=== PATIENT | male | born 1980 | race Caucasian/White ===

== ENCOUNTER 2018-03-21 16:43 | Inpatient (IN) | payer OTHER ==
[2018-03-21 18:21] VITALS: BMI 25.2
--- NOTE | 2018-03-21 21:44 | HP ---
COWS - Scale Resting Pulse: 0= [place] 80 or Below Sweatin=Flushed/Facial Moisture Restless Observation: 3= Extraneous Movement Pupil Size: 1= Pupils >than Normal Bone or Joint Aches: 4=Acute Joint/Muscle Pain Runny Nose/ Eye Tearin= Runny Nose/Eyes GI Upset > 30mins: 1= Stomach Cramp Tremor Observation: 2= Slight Tremor Visible Yawning Observation: 0= None Anxiety or Irritability: 4=Extreme Anxiety Goose Flesh Skin: 0=Smooth Skin COWS Score: 19 Admission [facility] Chief Complaint: C/O WITHDRAWAL SX'S. SEEKING DETOX FROM HEROIN Allergies/Adverse Reactions: Allergies Allergy/AdvReac Type Severity Reaction Status Date / Time No Known Allergies Allergy Verified 03/21/18 21:36 History of Present Illness: 37 Y.O. MALE WITH HX/O OPIOID DEPENDENCE HERE FOR DETOX. THIS IS CLIENTS FIRST VISIT HERE. HE IS REFERRED BY HIS NEEDLE EXCHANGE PROGRAM.HE IS KNOWN TO OTHER INPATIENT TXMENT. REPORTS LAST ATTEMPT WAS 4 YEARS AGO BUT DOES NOT RECALL WHERE. HE REPORTS HE IS CURRENTLY USING 7 BAGS OF HEROIN. THERE IS METHADONE NOTED IN HIS URINE BUT DENIES USE. IT IS ALSO NOTED ON THE HEEL BUILDER CLIENT RECIEVES SUBOXONE. HE REPORTS HE DOES NOT TAKE THEM "BECAUSE IT DOES NOTHING FOR ME". HE IS UNBALE TO EXPLAIN WHY HE CONTINUES TO FILL THE RX. HE DOES STATE HE HOPES TO GET CLEAN ENOUGH TO BE ABLE TO RESTART HIS RX. HE DENIES DIVERSION. HE CURRENTLY HAS RECENT NEEDLE BENNETT TO BOTH ARMS FROM IVDU. REPORTS LONGEST CLEAN TIME 90 DAYS IN THE PAST 7 YEARS. DENIES HX/O DRUG OVERDOSE, . HE REPORTS HE ATTEMPTED SUICIDE IN 2003 BY SLASHING HIS WRIST. HE PRESENTLY DENIES ANY SI/ HI. DENIES PMHX BUT DOES REPORT SCHIZOAFFECTIVE,ON HALDOL, ZYPREXA AND BUSPAR. DENIES LEGALS Others' Prescriptions Patient Name: Zander Casiano Date: 1980 Address: [address] [place] [address] Sex: Male Rx Written Rx Dispensed Drug Quantity Days Supply Prescriber Name 03/18/2018 03/18/2018 suboxone 8 mg-2 mg sl film 42 14 Javon Vieira 12/07/2017 12/09/2017 suboxone 8 mg-2 mg sl film 30 10 Eliu Garcia Patient Name: Zander Casiano Date: 1980 Address: [address] [place] [id number] Sex: Male Rx Written Rx Dispensed Drug Quantity Days Supply Prescriber Name 02/09/2018 02/09/2018 suboxone 8 mg-2 mg sl film 90 30 Timur-Jeff, Ajmal 01/03/2018 01/04/2018 suboxone 8 mg-2 mg sl film 21 7 Timur[facility]Jeff, [facility] 11/13/2017 11/14/2017 suboxone 8 mg-2 mg sl film 28 10 Timur-Jeff, [facility] 11/06/2017 11/07/2017 suboxone 8 mg-2 mg sl film 21 7 Timur-Jeff, [facility] 10/28/2017 10/29/2017 suboxone 8 mg-2 mg sl film 21 7 Timur-Jeff, [facility] 10/20/2017 10/21/2017 suboxone 8 mg-2 mg sl film 21 7 Timur-Jeff, [facility] Patient Name: Zander Casiano Date: 1980 Address: [address] [place] [id number] Sex: Male Rx Written Rx Dispensed Drug Quantity Days Supply Prescriber Name 01/26/2018 01/26/2018 suboxone 8 mg-2 mg sl film 45 15 Timur-Jeff, [facility] 01/17/2018 01/17/2018 suboxone 8 mg-2 mg sl film 21 7 Timur-Jeff, [facility] 01/10/2018 01/10/2018 suboxone 8 mg-2 mg sl film 21 7 Timur-Jeff, [facility] 10/16/2017 10/16/2017 suboxone 8 mg-2 mg sl film 21 7 Timur-Jeff, [facility] 10/09/2017 10/09/2017 suboxone 8 mg-2 mg sl film 21 7 Timur-Jeff, [facility] 09/27/2017 10/01/2017 suboxone 8 mg-2 mg sl film 21 7 Timur-Jeff, [facility] 09/15/2017 09/15/2017 suboxone 8 mg-2 mg sl film 45 15 Timur-Jeff, [facility] 08/14/2017 08/19/2017 suboxone 8 mg-2 mg sl film 90 30 Timur-Jeff, [facility] 07/17/2017 07/20/2017 suboxone 8 mg-2 mg sl film 90 30 Timur-Jeff, [facility] 07/05/2017 07/06/2017 suboxone 8 mg-2 mg sl film 45 15 Timur-Jeff, [facility] 06/23/2017 06/24/2017 suboxone 8 mg-2 mg sl film 45 15 Timur-Jeff, [facility] 06/09/2017 06/10/2017 suboxone 8 mg-2 mg sl film 45 15 Timur-Jeff, [facility] 05/27/2017 05/27/2017 suboxone 8 mg-2 mg sl film 45 15 Timur-Jeff, [facility] 05/08/2017 05/14/2017 suboxone 8 mg-2 mg sl film 45 15 Timur-Jeff, [facility] 04/28/2017 04/29/2017 suboxone 8 mg-2 mg sl film 45 15 Timur-Jeff, [facility] 04/14/2017 04/16/2017 zubsolv 8.6-2.1 mg tablet sl 60 30 Timur-Jeff, [facility] 04/03/2017 04/03/2017 suboxone 8 mg-2 mg sl film 45 15 Timur-Jeff, [facility] Patient Name: Zander Casiano Date: 1980 Address: [address] [place] [address] Sex: Male Rx Written Rx Dispensed Drug Quantity Days Supply Prescriber Name 11/23/2017 11/23/2017 suboxone 8 mg-2 mg sl film 60 20 Eliu Garcia Patient Name: Zander Casiano Date: 1980 Address: [address] [place] [address] Sex: Male Rx Written Rx Dispensed Drug Quantity Days Supply Prescriber Name 04/02/2017 04/02/2017 tramadol hcl 50 mg tablet 90 30 Lisa Newell Exam Limitations: No Limitations - Ebola screening Have you traveled outside of the country in the last 21 days: No (N) Have you had contact with anyone from an Ebola affected area: No Have you been sick,other than usual withdrawal symptoms: No Do you have a fever: No - Review of Systems Constitutional: Chills, Malaise, Night Sweats, Unintentional Wgt. Loss EENT: reports: Nose Congestion (RUNNY NOSE) Respiratory: reports: No Symptoms reported Cardiac: reports: No Symptoms Reported GI: reports: Poor Fluid Intake, Abdominal cramping : reports: No Symptoms Reported Musculoskeletal: reports: Back Pain Integumentary: reports: Erythema (TO RECENT INECTIO SITESD) Neuro: reports: No Symptoms reported Endocrine: reports: No Symptoms Reported Hematology: reports: No Symptoms Reported Psychiatric: reports: Anxious, Depressed Other Systems: Reviewed and Negative Patient History - Patient Medical History Hx Anemia: No Hx Asthma: No Hx Chronic Obstructive Pulmonary Disease (COPD): No Hx Cancer: No Hx Cardiac Disorders: No Hx Congestive Heart Failure: No Hx Hypertension: No Hx Hypercholesterolemia: No Hx Pacemaker: No HX Cerebrovascular Accident: No Hx Seizures: No Hx Dementia: No Hx Diabetes: No Hx Gastrointestinal Disorders: No Hx Liver Disease: No Hx Genitourinary Disorders: No Hx Sexually Transmitted Disorders: No Hx Renal Disease (ESRD): No Hx Thyroid Disease: No Hx Human Immunodeficiency Virus (HIV): No Hx Hepatitis C: No Hx Depression: No Hx Suicide Attempt: Yes Hx Bipolar Disorder: No Hx Schizophrenia: No Other Medical History: SCHIZOAFFECTIVE - Patient Surgical History Past Surgical History: No - PPD History Previous Implant?: Yes Documented Results: Negative w/o proof Implanted On Prior [facility] Admission?: No PPD to be Administered?: Yes - Smoking Cessation Smoking history: Current every day smoker Have you smoked in the past 12 months: Yes Aproximately how many cigarettes per day: 15 Cigars Per Day: 0 Hx Chewing Tobacco Use: No Initiated information on smoking cessation: Yes 'Breaking Loose' booklet given: 03/21/18 - Substance & Tx. History Hx Alcohol Use: No Hx Substance Use: Yes Substance Use Type: Heroin Hx Substance Use Treatment: Yes (DOES NOT RECALL) - Substances Abused HEROIN Route: Injection Frequency: Daily Amount used: 7 BAGS Age of first use: 17 Date of Last Use: 03/20/18 Family Disease History - Family Disease History Family History: Denies Admission Physical Exam BHS - Vital Signs Vital Signs: Vital Signs - 24 hr 03/21/18 18:19 Temperature 97.3 F L Pulse Rate 67 Respiratory 18 Rate Blood Pressure 118/72 - Physical General Appearance: Yes: Appropriately Dressed, Mild Distress, Tremorous, Irritable, Sweating, Anxious HEENTM: Yes: EOMI, Normocephalic, Normal Voice, ARETHA, Pharynx Normal, Nasal Congestion Respiratory: Yes: Chest Non-Tender, Lungs Clear, Normal Breath Sounds, No Respiratory Distress, No Accessory Muscle Use Neck: Yes: No masses,lesions,Nodules, Supple, Trachea in good position Breast: Yes: Breast Exam Deferred Cardiology: Yes: Regular Rhythm, Regular Rate, S1, S2 Abdominal: Yes: Normal Bowel Sounds, Non Tender, Soft Genitourinary: Yes: Other (NO C/O) Back: Yes: Normal Inspection Musculoskeletal: Yes: full range of Motion, Gait Steady Extremities: Yes: Normal Capillary Refill, Normal Range of Motion, Non-Tender, Tremors Neurological: Yes: Fully Oriented, Alert, Depressed Affect Integumentary: Yes: Warm, Moist, Track Bennett (RECENT INJECTION BENNETT TO BOTH ARMS) Lymphatic: Yes: Within Normal Limits - Diagnostic (1) Opioid dependence with withdrawal Current Visit: Yes Status: Acute (2) Nicotine dependence Current Visit: Yes Status: Chronic Qualifiers: Nicotine product type: cigarettes Substance use status: uncomplicated Qualified Code(s): F17.210 - Nicotine dependence, cigarettes, uncomplicated (3) Schizoaffective disorder Current Visit: Yes Status: Chronic Qualifiers: Schizoaffective disorder type: unspecified Qualified Code(s): F25.9 - Schizoaffective disorder, unspecified (4) Depressed affect Current Visit: Yes Status: Acute (5) At risk for dehydration due to poor fluid intake Current Visit: Yes Status: Acute Cleared for Admission [facility] - Detox or Rehab [facility] Level of Care: Medically Managed Detox Regimen/Protocol: Methadone Claeared for Rehab Admission: No [facility] Breath Alcohol Content Breath Alcohol Content: 0 Urine Drug Screen - Results Drug Screen Negative: No Urine Drug Screen Results: OPI-Opiates, MTD-Methadone
[2018-03-21] MEDS ORDERED: METHADONE HCL 10 MG TABLET (FOR DETOX USE ONLY) PO ONE ×2 (21:54→23:00)
[2018-03-21] MEDS ORDERED: ACETAMINOPHEN 325 MG TABLET (FP) PO PRN (21:54)
[2018-03-21] MEDS ORDERED: MAGNESIUM HYDROX 2400MG/30ML ORAL SUSPENSION 30 ML CUP PO PRN (21:54)
[2018-03-21] MEDS ORDERED: MENTHOL/PHENOL 1 EACH UD MM PRN (21:54)
[2018-03-21] MEDS ORDERED: guaiFENesin/D-METHORPHAN HB 10 ML UNIT-DOSE CUPS PO PRN (21:54)
[2018-03-21] MEDS ORDERED: IBUPROFEN 400 MG TABLET (FP) PO PRN (21:54)
[2018-03-21] MEDS ORDERED: MAG HYDROX/AL HYDROX/SIMETH 30 ML UNIT-DOSE CUP PO PRN (21:54)
[2018-03-21] MEDS ORDERED: P-EPHED 60MG/TRIPROLIDI 2.5MG TABLET PO PRN (21:54)
[2018-03-21] MEDS ORDERED: MAGNESIUM CITRATE 300 ML BOTTLE PO PRN (21:54)
[2018-03-21] MEDS ORDERED: LOPERAMIDE HCL 2 MG CAPSULE PO PRN (21:54)
[2018-03-21] MEDS ORDERED: MELATONIN 5 MG TABLETS PO PRN (22:00)
[2018-03-21] MEDS: THIAMINE HCL 100 MG TABLET (FP) PO SCH (22:45)
[2018-03-22] MEDS ORDERED: METHADONE HCL 10 MG TABLET (FOR DETOX USE ONLY) PO ONE (10:00)
[2018-03-22] MEDS: PRENATAL VITAMINS W/ FOLIC ACID TABLET (FP) PO SCH (10:11)
[2018-03-22] MEDS: NICOTINE 21 MG/24 HOURS TOPICAL PATCH TD SCH (10:11)
[2018-03-22 10:28] LABS: HEMATOCRIT 42.1 % (35.4-49); HEMOGLOBIN 13.5 GM/dL (11.7-16.9); MCH 27.7 pg (25.7-33.7); MCHC 32.1 g/dl (32.0-35.9); MEAN CELL VOLUME 86.1 fl (80-96); MEAN PLT VOLUME 9.1 fl (7.5-11.1); PLATELET COUNT 231 K/MM3 (134-434); RBC 4.89 M/mm3 (4.00-5.60); RDW 14.7 % (11.9-15.9); WHITE BLOOD COUNT 6.1 K/mm3 (4.0-10.0)
[2018-03-22 10:48] LABS: ALBUMIN 3.1 g/dl (3.4-5.0); ALK PHOS 83 U/L (45-117); ANION GAP 8 MMOL/L (8-16); BILIRUBIN,TOTAL 0.5 mg/dL (0.2-1); BLOOD UREA NITROGEN 10 mg/dL (7-18); CALCIUM 9.1 mg/dL (8.5-10.1); CHLORIDE 108 mmol/L (98-107); CO2 26 mmol/L (21-32); CREATININE 0.7 mg/dL (0.55-1.3); GLUCOSE,RANDOM 76 mg/dL (74-106); POTASSIUM 4.5 mmol/L (3.5-5.1); SGOT/AST 40 U/L (15-37); SGPT/ALT 67 U/L (13-61); SODIUM 142 mmol/L (136-145); TOT PROT 6.4 g/dl (6.4-8.2)
--- NOTE | 2018-03-22 11:06 | EKG ---
Test Reason : Blood Pressure : / mmHG Vent. Rate : 053 BPM Atrial Rate : 053 BPM P-R Int : 130 ms QRS Dur : 080 ms QT Int : 406 ms P-R-T Axes : 038 074 051 degrees QTc Int : 380 ms SINUS BRADYCARDIA OTHERWISE NORMAL ECG NO PREVIOUS ECGS AVAILABLE Confirmed by Ricky Puckett MD ([id number]) on 03/22/2018 11:06:20 AM Referred By: Confirmed By:Ricky Puckett MD
--- NOTE | 2018-03-22 11:24 | PN ---
BHS COWS - Scale Resting Pulse: 0= [place] 80 or Below Sweatin=Flushed/Facial Moisture Restless Observation: 1= Difficult to Sit Still Pupil Size: 0= Normal to Room Light Bone or Joint Aches: 2= Severe Diffuse Aches Runny Nose/ Eye Tearin= Nasal Congestion GI Upset > 30mins: 1= Stomach Cramp Tremor Observation of Outstretched Hands: 2= Slight Tremor Visible Yawning Observation: 2= >3x During Session Anxiety or Irritability: 2=Irritable/Anxious Goose Flesh Skin: 0=Smooth Skin COWS Score: 13 BHS Progress Note (SOAP) Subjective: irritable agitation sweats interrupted sleep chills/goosebumps Objective: 03/22/18 11:23 Vital Signs Temperature 97.6 F 03/22/18 09:17 Pulse Rate 73 03/22/18 09:17 Respiratory Rate 18 03/22/18 09:17 Blood Pressure 133/76 03/22/18 09:17 O2 Sat by Pulse Oximetry (%) Laboratory Tests 03/22/18 03/22/18 03/22/18 07:30 07:30 07:30 WBC 6.1 RBC 4.89 Hgb 13.5 Hct 42.1 MCV 86.1 MCH 27.7 MCHC 32.1 RDW 14.7 Plt Count 231 MPV 9.1 Sodium 142 Potassium 4.5 Chloride 108 H Carbon Dioxide 26 Anion Gap 8 BUN 10 Creatinine 0.7 Creat Clearance w eGFR > 60 Random Glucose 76 Calcium 9.1 Total Bilirubin 0.5 AST 40 H ALT 67 H Alkaline Phosphatase 83 Total Protein 6.4 Albumin 3.1 L RPR Titer Nonreactive HIV 1&2 Antibody Screen HIV P24 Antigen 03/22/18 07:30 WBC RBC Hgb Hct MCV MCH MCHC RDW Plt Count MPV Sodium Potassium Chloride Carbon Dioxide Anion Gap BUN Creatinine Creat Clearance w eGFR Random Glucose Calcium Total Bilirubin AST ALT Alkaline Phosphatase Total Protein Albumin RPR Titer HIV 1&2 Antibody Screen Negative HIV P24 Antigen Negative labs pending aaox3 ambulating no acute distress Assessment: 03/22/18 11:24 withdrawal sx Plan: continue detox increase fluids
--- NOTE | 2018-03-22 12:32 | CONSULT ---
[facility] Psychiatric Consult - Data Date of interview: 03/22/18 Admission source: [facility] Identifying data: Patient is a 37 year old single male, without children, unemployed (denies receiving financial assistance) and is currently homeless. This is patient's first admission to detox at [facility]. Patient admitted to for opiate dependence. Substance Abuse History: - Smoking Cessation. Smoking history: Current every day smoker. Have you smoked in the past 12 months: Yes. Aproximately how many cigarettes per day: 15. Cigars Per Day: 0. Hx Chewing Tobacco Use: No. Initiated information on smoking cessation: Yes. 'Breaking Loose' booklet given : 03/21/18. - Substance & Tx. History. Hx Alcohol Use: No. Hx Substance Use: Yes. Substance Use Type: Heroin. Hx Substance Use Treatment: Yes (DOES NOT RECALL). - Substances Abused. HEROIN. Route: Injection. Frequency: Daily. Amount used: 7 BAGS. Age of first use: 17. Date of Last Use: 03/20/18 Medical History: denies. Psychiatric History: Patient's first psychiatric contact was 18 years ago. He was admitted to [facility] psychatric unit, diagnosed with schizoaffective , and started on Zyprexa. After discharge he continued to receive psychiatric treatment at [facility] outpatient clinc. Patient currently receives outpatient psychiatric care by Dr. Abdon Marte at [facility]. He is prescribed zyprexa 5mg + Buspar 15mg TID + Haldol 2mg prn (reports taking haldol 3-4 times per week). Pharmacy claims reviewed. Pt reports compliance with medication. Patient denies h/o suicide attempt. No psychosis, manic or depressive symptoms noted. He currently reports poor sleep. Patient denies h/o suicide attempt. Physical/Sexual Abuse/Trauma History: denies. Mental Status Exam - Mental Status Exam Alert and Oriented to: Time, Place, Person Cognitive Function: Good Mood: Euthymic Affect: Mood Congruent Patient Behavior: Fatigued, Cooperative Speech Pattern: Appropriate Voice Loudness: Normal Thought Process: Intact, Goal Oriented Thought Disorder: Not Present Hallucinations: Denies Suicidal Ideation: Denies Homicidal Ideation: Denies Insight/Judgement: Poor Sleep: Poorly Appetite: Fair Muscle strength/Tone: Normal Gait/Station: Normal Psychiatric Findings - Problem List ([place] 1, 2,3) (1) Opioid dependence with withdrawal Current Visit: Yes Status: Acute (2) Nicotine dependence Current Visit: Yes Status: Chronic Qualifiers: Nicotine product type: cigarettes Substance use status: uncomplicated Qualified Code(s): F17.210 - Nicotine dependence, cigarettes, uncomplicated (3) Schizoaffective disorder Current Visit: Yes Status: Chronic Qualifiers: Schizoaffective disorder type: unspecified Qualified Code(s): F25.9 - Schizoaffective disorder, unspecified - Initial Treatment Plan Initial Treatment Plan: Psychoeducation provided. Detoxification in progress. Will order zyprexa 5mg + Buspar 15mg BID (he dose not want to be awaken at 6am so will order BID)+ Haldol 2mg q6hr for agitation/irritiabiity. Benefits and side effects discussed. Verbal consent given.
[2018-03-22] MEDS ORDERED: HALOPERIDOL 2 MG TABLET PO PRN (12:47)
[2018-03-22] MEDS ORDERED: HALOPERIDOL 1 MG TABLET (FP) PO PRN ×2 (12:58→18:05)
[2018-03-22 18:49] LABS: URINE APPEARANCE CLEAR; URINE BILIRUBIN NEGATIVE (<2.0 mg/dL); URINE COLOR YELLOW; URINE GLUCOSE (UA) NEGATIVE (NEGATIVE); URINE KETONE NEGATIVE (NEGATIVE); URINE LEUK ESTERASE NEGATIVE (NEGATIVE); URINE NITRITE NEGATIVE (NEGATIVE); URINE PROTEIN NEGATIVE (NEGATIVE); URINE UROBILINOGEN NEGATIVE mg/dL (0.2-1.0)
[2018-03-22] MEDS: OLANZapine 5 MG TABLET PO SCH (22:02)
[2018-03-22] MEDS: THIAMINE HCL 100 MG TABLET (FP) PO SCH (22:03)
[2018-03-23] MEDS ORDERED: METHADONE HCL 5 MG TABLET (FOR DETOX USE ONLY) PO ONE (10:00)
[2018-03-23] MEDS: NICOTINE 21 MG/24 HOURS TOPICAL PATCH TD SCH (10:08)
[2018-03-23] MEDS: PRENATAL VITAMINS W/ FOLIC ACID TABLET (FP) PO SCH (10:09)
--- NOTE | 2018-03-23 10:30 | PN ---
BHS COWS - Scale Resting Pulse: 0= [place] 80 or Below Sweatin= Chills/Flushing Restless Observation: 1= Difficult to Sit Still Pupil Size: 1= Pupils >than Normal Bone or Joint Aches: 1= Mild Discomfort Runny Nose/ Eye Tearin= Runny Nose/Eyes GI Upset > 30mins: 1= Stomach Cramp Tremor Observation of Outstretched Hands: 1= Tremor [place], Not Seen Yawning Observation: 1= 1-2x During Session Anxiety or Irritability: 1=Feels Anxious/Irritable Goose Flesh Skin: 0=Smooth Skin COWS Score: 10 BHS Progress Note (SOAP) Subjective: sweat tremor gi distress restlessness patient reported that he is on suboxone 8-2 mg tid x 2 years last filled x 30 days patient has positive utox for opiate and methadone discussed risks and benefits of suboxone vs. methadone patient wants to continue maintaining in suboxen program Objective: 03/23/18 10:33 Vital Signs Temperature 98.4 F 03/23/18 09:04 Pulse Rate 69 03/23/18 09:04 Respiratory Rate 16 03/23/18 09:04 Blood Pressure 115/59 L 03/23/18 09:04 O2 Sat by Pulse Oximetry (%) Laboratory Last Values WBC 6.1 K/mm3 (4.0-10.0) 03/22/18 07:30 RBC 4.89 M/mm3 (4.00-5.60) 03/22/18 07:30 Hgb 13.5 GM/dL (11.7-16.9) 03/22/18 07:30 Hct 42.1 % (35.4-49) 03/22/18 07:30 MCV 86.1 fl (80-96) 03/22/18 07:30 MCH 27.7 pg (25.7-33.7) 03/22/18 07:30 MCHC 32.1 g/dl (32.0-35.9) 03/22/18 07:30 RDW 14.7 % (11.9-15.9) 03/22/18 07:30 Plt Count 231 K/MM3 (134-434) 03/22/18 07:30 MPV 9.1 fl (7.5-11.1) 03/22/18 07:30 Sodium 142 mmol/L (136-145) 03/22/18 07:30 Potassium 4.5 mmol/L (3.5-5.1) 03/22/18 07:30 Chloride 108 mmol/L (98-107) H 03/22/18 07:30 Carbon Dioxide 26 mmol/L (21-32) 03/22/18 07:30 Anion Gap 8 MMOL/L (8-16) 03/22/18 07:30 BUN 10 mg/dL (7-18) 03/22/18 07:30 Creatinine 0.7 mg/dL (0.55-1.3) 03/22/18 07:30 Creat Clearance w eGFR > 60 (>60) 03/22/18 07:30 Random Glucose 76 mg/dL (74-106) 03/22/18 07:30 Calcium 9.1 mg/dL (8.5-10.1) 03/22/18 07:30 Total Bilirubin 0.5 mg/dL (0.2-1) 03/22/18 07:30 AST 40 U/L (15-37) H 03/22/18 07:30 ALT 67 U/L (13-61) H 03/22/18 07:30 Alkaline Phosphatase 83 U/L (45-117) 03/22/18 07:30 Total Protein 6.4 g/dl (6.4-8.2) 03/22/18 07:30 Albumin 3.1 g/dl (3.4-5.0) L 03/22/18 07:30 Urine Color Yellow 03/22/18 16:30 Urine Appearance Clear 03/22/18 16:30 Urine pH 6.0 (5.0-8.0) 03/22/18 16:30 Ur Specific [place] 1.021 (1.001-1.035) 03/22/18 16:30 Urine Protein Negative (NEGATIVE) 03/22/18 16:30 Urine Glucose (UA) Negative (NEGATIVE) 03/22/18 16:30 Urine Ketones Negative (NEGATIVE) 03/22/18 16:30 Urine Blood Negative (NEGATIVE) 03/22/18 16:30 Urine Nitrite Negative (NEGATIVE) 03/22/18 16:30 Urine Bilirubin Negative (<2.0 mg/dL) 03/22/18 16:30 Urine Urobilinogen Negative mg/dL (0.2-1.0) 03/22/18 16:30 Ur Leukocyte Esterase Negative (NEGATIVE) 03/22/18 16:30 RPR Titer Nonreactive (NONREACTIVE) 03/22/18 07:30 HIV 1&2 Antibody Screen Negative 03/22/18 07:30 HIV P24 Antigen Negative 03/22/18 07:30 lab noted Assessment: 03/23/18 10:34 withdrawal sx Plan: continue detox
[2018-03-23] MEDS: NICOTINE POLACRILEX 2 MG GUM BC PRN ×2 (17:00→19:13)
[2018-03-23] MEDS: OLANZapine 5 MG TABLET PO SCH (21:03)
[2018-03-23] MEDS: THIAMINE HCL 100 MG TABLET (FP) PO SCH (21:07)
[2018-03-24] MEDS ORDERED: METHADONE HCL 5 MG TABLET (FOR DETOX USE ONLY) PO ONE (10:00)
[2018-03-24] MEDS: PRENATAL VITAMINS W/ FOLIC ACID TABLET (FP) PO SCH (10:44)
[2018-03-24] MEDS: diazePAM 5 MG TABLET PO PRN ×3 (10:44→22:31)
[2018-03-24] MEDS: NICOTINE 21 MG/24 HOURS TOPICAL PATCH TD SCH (10:47)
[2018-03-24] MEDS: NICOTINE POLACRILEX 2 MG GUM BC PRN (10:48)
--- NOTE | 2018-03-24 12:24 | PN ---
BHS Progress Note (SOAP) Subjective: body aches joints pain sweat tremor Objective: 03/24/18 12:23 Vital Signs Temperature 97.9 F 03/24/18 09:18 Pulse Rate 60 03/24/18 09:18 Respiratory Rate 18 03/24/18 09:18 Blood Pressure 124/82 03/24/18 09:18 O2 Sat by Pulse Oximetry (%) Laboratory Last Values WBC 6.1 K/mm3 (4.0-10.0) 03/22/18 07:30 RBC 4.89 M/mm3 (4.00-5.60) 03/22/18 07:30 Hgb 13.5 GM/dL (11.7-16.9) 03/22/18 07:30 Hct 42.1 % (35.4-49) 03/22/18 07:30 MCV 86.1 fl (80-96) 03/22/18 07:30 MCH 27.7 pg (25.7-33.7) 03/22/18 07:30 MCHC 32.1 g/dl (32.0-35.9) 03/22/18 07:30 RDW 14.7 % (11.9-15.9) 03/22/18 07:30 Plt Count 231 K/MM3 (134-434) 03/22/18 07:30 MPV 9.1 fl (7.5-11.1) 03/22/18 07:30 Sodium 142 mmol/L (136-145) 03/22/18 07:30 Potassium 4.5 mmol/L (3.5-5.1) 03/22/18 07:30 Chloride 108 mmol/L (98-107) H 03/22/18 07:30 Carbon Dioxide 26 mmol/L (21-32) 03/22/18 07:30 Anion Gap 8 MMOL/L (8-16) 03/22/18 07:30 BUN 10 mg/dL (7-18) 03/22/18 07:30 Creatinine 0.7 mg/dL (0.55-1.3) 03/22/18 07:30 Creat Clearance w eGFR > 60 (>60) 03/22/18 07:30 Random Glucose 76 mg/dL (74-106) 03/22/18 07:30 Calcium 9.1 mg/dL (8.5-10.1) 03/22/18 07:30 Total Bilirubin 0.5 mg/dL (0.2-1) 03/22/18 07:30 AST 40 U/L (15-37) H 03/22/18 07:30 ALT 67 U/L (13-61) H 03/22/18 07:30 Alkaline Phosphatase 83 U/L (45-117) 03/22/18 07:30 Total Protein 6.4 g/dl (6.4-8.2) 03/22/18 07:30 Albumin 3.1 g/dl (3.4-5.0) L 03/22/18 07:30 Urine Color Yellow 03/22/18 16:30 Urine Appearance Clear 03/22/18 16:30 Urine pH 6.0 (5.0-8.0) 03/22/18 16:30 Ur Specific [place] 1.021 (1.001-1.035) 03/22/18 16:30 Urine Protein Negative (NEGATIVE) 03/22/18 16:30 Urine Glucose (UA) Negative (NEGATIVE) 03/22/18 16:30 Urine Ketones Negative (NEGATIVE) 03/22/18 16:30 Urine Blood Negative (NEGATIVE) 03/22/18 16:30 Urine Nitrite Negative (NEGATIVE) 03/22/18 16:30 Urine Bilirubin Negative (<2.0 mg/dL) 03/22/18 16:30 Urine Urobilinogen Negative mg/dL (0.2-1.0) 03/22/18 16:30 Ur Leukocyte Esterase Negative (NEGATIVE) 03/22/18 16:30 RPR Titer Nonreactive (NONREACTIVE) 03/22/18 07:30 HIV 1&2 Antibody Screen Negative 03/22/18 07:30 HIV P24 Antigen Negative 03/22/18 07:30 lab noted Assessment: 03/24/18 12:24 withdrawal sx Plan: continue detox
[2018-03-24] MEDS: THIAMINE HCL 100 MG TABLET (FP) PO SCH (22:32)
[2018-03-24] MEDS: OLANZapine 5 MG TABLET PO SCH (22:32)
[2018-03-25 07:25] VITALS: TEMP 97.7
[2018-03-25 09:42] VITALS: BP 118/67; PULSE 79
[2018-03-25] MEDS ORDERED: METHADONE HCL 10 MG TABLET (FOR DETOX USE ONLY) PO ONE (10:00)
[2018-03-25] MEDS: NICOTINE 21 MG/24 HOURS TOPICAL PATCH TD SCH (10:04)
[2018-03-25] MEDS: PRENATAL VITAMINS W/ FOLIC ACID TABLET (FP) PO SCH (10:04)
--- NOTE | 2018-03-25 12:01 | DS ---
[facility] Detox Discharge Summary Admission Date: 03/21/18 Discharge Date: 03/25/18 - History Present History: Opioid Dependence - Physical Exam Results Vital Signs: Vital Signs Temperature 97.7 F 03/25/18 09:42 Pulse Rate 79 03/25/18 09:42 Respiratory Rate 18 03/25/18 09:42 Blood Pressure 118/67 03/25/18 09:42 O2 Sat by Pulse Oximetry (%) Pertinent Admission Physical Exam Findings: PATIENT TOLERATED DETOX WELL. ACCEPTED REHAB REFERRAL TO [facility] AND BED AVAILABLE TODAY. PATIENT WAS SCHEDULED D/C TOMORROW. SINCE PATIENT MEDICALLY STABLE, AGREE TO D/C TODAY. PATIENT DENIES SI/HI. ENCOURAGED TO COMPLETE REHAB TO PREVENT RELAPSE. - Treatment Hospital Course: Detox Protocol Followed, Detoxed Safely, Responded well, Discharged Condition Good, Rehab Referral Accepted Patient has Accepted a Rehab Referral to: [facility] - Medication Discharge Medications: Ambulatory Orders Buspirone HCl [Buspar -] 15 mg PO TID 03/21/18 Haloperidol [Haldol -] 2 mg PO PRN PRN 03/21/18 Olanzapine [Zyprexa -] 5 mg PO HS 03/21/18 Haloperidol [Haldol -] 2 mg PO Q6H PRN 03/22/18 - AMA Did Patient Leave Against Medical Advice: No
[2018-03-26] MEDS ORDERED: METHADONE HCL 5 MG TABLET (FOR DETOX USE ONLY) PO ONE (06:00)
== END 2018-03-25 12:28 | disposition home or self-care (01) | DRG 773 ==
LOC: YASAS 16:43 → Y6N 22:08
PROC: HZ2ZZZZ Detoxification Services for Substance Abuse Treatment (ICD-10-PCS; principal; 2018-03-21)
DX: F11.23 Opioid dependence with withdrawal (principal); F17.210 Nicotine dependence, cigarettes, uncomplicated; F25.9 Schizoaffective disorder, unspecified; F32.9 Major depressive disorder, single episode, unspecified; R63.8 Other symptoms and signs concerning food and fluid intake
CPT/HCPCS: 36415; 80053; 81003; 85027; 86593; 87389; 93005; 93010

== ENCOUNTER 2022-04-23 10:13 | Inpatient (IN) | payer OTHER ==
[2022-04-23 11:15] VITALS: BMI 30.4
[2022-04-23] MEDS ORDERED: IBUPROFEN 600 MG TABLET (FP) PO PRN (11:54)
[2022-04-23] MEDS ORDERED: MAGNESIUM HYDROX 2400MG/30ML ORAL SUSPENSION 30 ML CUP PO PRN (11:54)
[2022-04-23] MEDS ORDERED: IBUPROFEN 400 MG TABLET (FP) PO PRN (11:54)
[2022-04-23] MEDS ORDERED: BISMUTH SUBSALICYLATE 524 MG/30 ML PO PRN (11:54)
[2022-04-23] MEDS ORDERED: diazePAM 5 MG TABLET PO PRN (11:54)
[2022-04-23] MEDS ORDERED: LOPERAMIDE HCL 2 MG CAPSULE PO PRN (11:54)
[2022-04-23] MEDS ORDERED: ACETAMINOPHEN 325 MG TABLET (FP) PO PRN ×2 (11:54)
[2022-04-23] MEDS ORDERED: ONDANSETRON *ODT* 4 MG TABLET SL PRN (11:54)
[2022-04-23] MEDS ORDERED: DICYCLOMINE HCL 10 MG CAPSULE PO PRN (11:54)
[2022-04-23] MEDS ORDERED: MAGNESIUM CITRATE 300 ML BOTTLE PO PRN (11:54)
[2022-04-23] MEDS ORDERED: BUPRENORPHINE HCL 150 MCG, BUPRENORPHINE HCL 75 MCG BC PRN (11:54)
[2022-04-23] MEDS ORDERED: BENZOCAINE/MENTHOL (CHLORASEPTIC ) LOZENGE MM PRN (11:54)
[2022-04-23] MEDS ORDERED: METHOCARBAMOL 500 MG TABLET PO PRN (11:54)
[2022-04-23] MEDS ORDERED: NICOTINE 10 MG CARTRIDGE (INHALER) IH PRN (11:54)
[2022-04-23] MEDS ORDERED: hydrOXYzine PAMOATE 25 MG CAPSULE (FP) PO PRN (11:54)
[2022-04-23] MEDS ORDERED: MAG HYDROX/AL HYDROX/SIMETH 30 ML UNIT-DOSE CUP PO PRN (11:54)
[2022-04-23] MEDS ORDERED: NALOXONE HCL (KLOXXADO) 8 MG SPRAY NS PRN (11:54)
[2022-04-23] MEDS ORDERED: BUPRENORPHINE HCL 150 MCG FILM BC ONE (12:09)
[2022-04-23] MEDS ORDERED: BUPRENORPHINE HCL 75 MCG FILM BC ONE (12:10)
[2022-04-23] MEDS ORDERED: IBUPROFEN 600 MG TABLET (FP) PO ONE (12:14)
[2022-04-23] MEDS ORDERED: cloNIDine HCL 0.1 MG TABLET PO ONE (12:15)
[2022-04-23] MEDS ORDERED: BUPRENORPHINE HCL 150 MCG, BUPRENORPHINE HCL 75 MCG BC ONE (12:15)
[2022-04-23] MEDS ORDERED: PRENATAL VITAMINS W/ FOLIC ACID TABLET (FP) PO SCH (12:30)
[2022-04-23 12:54] VITALS: BP 123/65; PULSE 77; RESP 18; TEMP 97.3
[2022-04-23 15:34] LABS: HEMATOCRIT 41.1 % (35.4-49); HEMOGLOBIN 13.9 GM/dL (11.7-16.9); MCH 29.1 pg (25.7-33.7); MEAN CELL VOLUME 85.8 fl (80-96); MEAN PLT VOLUME 9.4 fl (7.5-11.1); PLATELET COUNT 179 10^3/uL (134-434); RBC 4.78 M/mm3 (4.00-5.60); RDW 13.5 % (11.9-15.9); WHITE BLOOD COUNT 7.1 K/mm3 (4.0-10.0)
[2022-04-23 15:48] LABS: BLOOD UREA NITROGEN 16.9 mg/dL (7-18)
[2022-04-23 15:49] LABS: ALBUMIN 3.7 g/dl (3.4-5.0); CREATININE 0.7 mg/dL (0.55-1.3)
[2022-04-23 15:50] LABS: BILIRUBIN,TOTAL 0.4 mg/dL (0.2-1); CALCIUM 9.2 mg/dL (8.5-10.1); TOT PROT 7.2 g/dl (6.4-8.2)
[2022-04-23] MEDS ORDERED: cloNIDine HCL 0.1 MG TABLET PO PRN (15:54)
[2022-04-23] MEDS ORDERED: MELATONIN 5 MG TABLETS PO SCH (22:00)
[2022-04-23] MEDS ORDERED: THIAMINE HCL 100 MG TABLET (FP) PO SCH (22:00)
[2022-04-24] MEDS ORDERED: BUPRENORPHINE HCL 150 MCG, BUPRENORPHINE HCL 75 MCG BC PRN
[2022-04-24] MEDS ORDERED: BUPRENORPHINE HCL 150 MCG, BUPRENORPHINE HCL 75 MCG BC SCH (06:00)
[2022-04-25] MEDS ORDERED: BUPRENORPHINE HCL 450 MCG FILM BC SCH (06:00)
[2022-04-26] MEDS ORDERED: BUPRENORPHINE/NALOXONE 4 MG/1 MG FILM PACKET SL SCH (06:00)
[2022-04-27] MEDS ORDERED: BUPRENORPHINE/NALOXONE 8 MG/2 MG FILM PACKET SL ONE (06:00)
== END 2022-04-23 14:04 | disposition home or self-care (01) | DRG 773 ==
LOC: YASAS 10:13 → Y6N 12:12
PROVIDERS: ADMIT Allergy & Immunology; ATTEND Surgery
PROC: HZ2ZZZZ Detoxification Services for Substance Abuse Treatment (ICD-10-PCS; principal; 2022-04-23)
DX: F11.23 Opioid dependence with withdrawal (principal); F14.20 Cocaine dependence, uncomplicated; F17.210 Nicotine dependence, cigarettes, uncomplicated; Z91.199 Patient's noncompliance with other medical treatment and regimen due to unspecified reason
CPT/HCPCS: 36415; 80053; 85027; 86780; C9803-CS; U0003; U0005

== ENCOUNTER 2023-07-28 11:56 | Emergency (ER) | payer OTHER ==
[2023-07-28 12:01] VITALS: RESP 20; BMI 26.6
[2023-07-28 12:10] VITALS: BP 103/58; PULSE 72; TEMP 98.6
== END 2023-07-28 12:49 | disposition left against medical advice (07) ==
LOC: JERFT 11:56
DX: Z53.9 Procedure and treatment not carried out, unspecified reason (principal)
CPT/HCPCS: 99281-25